=== PATIENT | male | born 1940 | race Caucasian/White ===

== ENCOUNTER → 2017-08-02 | Outpatient (CLI) | payer OTHER | LOC: BHLMT 11:30 | PROVIDERS: ATTEND Nurse Practitioner Family | DX: I48.91 Unspecified atrial fibrillation (principal) | CPT/HCPCS: 93005-PO ==

== ENCOUNTER → 2017-08-08 | Outpatient (CLI) | payer OTHER | LOC: BHLMT 13:30 | PROVIDERS: ATTEND Internal Medicine Cardiovascular Disease | DX: I48.1 Persistent atrial fibrillation (principal); I10 Essential (primary) hypertension; Z79.899 Other long term (current) drug therapy | CPT/HCPCS: 93005-PO ==

== ENCOUNTER 2017-11-12 09:18 | Day surgery (SDC) | payer OTHER ==
[2017-11-12] MEDS ORDERED: ATROPINE SULFATE 1 MG/10 ML SYR IVP ONE (09:21)
[2017-11-12] MEDS ORDERED: MIDAZOLAM 2 MG/2 ML VIAL IVP ONE (09:21)
[2017-11-12] MEDS ORDERED: NS 500 ML IV ONE (09:21)
[2017-11-12] MEDS ORDERED: fentaNYL 100 MCG/2 ML INJ IVP ONE (09:21)
[2017-11-12 10:08] LABS: INR 2.11 (0.83-1.16); PROTIME(PATIENT) 23.7 SEC (12.0-15.0)
--- NOTE | 2017-11-12 10:09 | CPEKG ---
Test Reason : OPEN Blood Pressure : / mmHG Vent. Rate : 101 BPM Atrial Rate : 101 BPM P-R Int : 167 ms QRS Dur : 099 ms QT Int : 365 ms P-R-T Axes : 081 054 017 degrees QTc Int : 474 ms Sinus tachycardia Confirmed by Roland Sanders ([id number]) on 11/12/2017 10:08:40 AM Referred By: Confirmed By:Roland Sanders
[2017-11-12] MEDS ORDERED: PROPOFOL 200 MG/20 ML VIAL ONE (10:50)
--- NOTE | 2017-11-12 11:07 | PDHPUP ---
History & Physical Update H&P update statement: This history and physical update is based on an assessment of the patient which was completed after admission or registration (within 24 hours), but prior to the surgery/procedure. H&P update: H&P reviewed & patient examined, no change in patient's condition since H&P completed
--- NOTE | 2017-11-12 11:14 | PDCARD ---
Cardioversion Procedure Procedure: electrical cardioversion Indications: other (Atrial Tachycardia) Consent: signed and in chart Anticoagulation: warfarin Procedural Details: Pads were placed in anterior-posterior position. Synchronized cardioversion attempt #1: [id number] Results: normal sinus rhythm Conclusions: successful cardioversion
--- NOTE | 2017-11-12 11:22 | PDANEPAE ---
ANE History of Present Illness Patient presents for Cardioversion ANE Past Medical History - Cardiovascular History Hx Hypertension: Yes Hx Arrhythmias: Yes - Pulmonary History Hx Oxygen in Use at Home: No Hx Sleep Apnea: No ANE Review of Systems Review of Systems: ANE Patient History - Allergies Allergies/Adverse Reactions: codeine Allergy (Verified 11/12/17 09:21) - NPO status NPO Status: no food or drink >8 hours - Smoking Hx Smoking Status: Former smoker ANE Labs/Vital Signs - Labs Result Diagrams: 11/12/17 07:50 - Vital Signs Height: 175 cm Weight: 75.7 kg ANE Physical Exam - Airway Neck exam: FROM Mallampati Score: Class 1 Mouth exam: normal dental/mouth exam - Pulmonary Pulmonary: no respiratory distress - Cardiovascular Cardiovascular: irregularly irregular - ASA Status ASA Status: III ANE Anesthesia Plan Anesthesia Plan: GA with mask (RBA discussed)
--- NOTE | 2017-11-12 11:22 | POSTANESTH ---
Post Anesthetic Evaluation Cardiovascular Status: Similar to Pre-Op Cond Respiratory Status: Similar to Pre-op Cond. Level of Consciousness/Mental Status: Alert and Oriented Pain Control: Adequate, Prn Tx Ordered Nausea/Vomiting Control: Adequate, Prn Tx Ordered Complications Possibly Related to Anesthesia: None Noted
--- NOTE | 2017-11-13 08:39 | CPEKG ---
Test Reason : OPEN Blood Pressure : / mmHG Vent. Rate : 057 BPM Atrial Rate : 056 BPM P-R Int : 306 ms QRS Dur : 096 ms QT Int : 466 ms P-R-T Axes : 008 019 017 degrees QTc Int : 454 ms Sinus rhythm Prolonged [place] interval Confirmed by Roland Sanders ([id number]) on 11/13/2017 8:39:20 AM Referred By: Confirmed By:Roland Sanders
== END 2017-11-12 12:15 | disposition home or self-care (01) ==
LOC: FCATH 09:18
PROVIDERS: ATTEND Internal Medicine Cardiovascular Disease
PROC: 5A2204Z Restoration of Cardiac Rhythm, Single (ICD-10-PCS; principal; 2017-11-12)
DX: I47.1 Supraventricular tachycardia (principal); I48.1 Persistent atrial fibrillation; I48.92 Unspecified atrial flutter; R00.2 Palpitations; I10 Essential (primary) hypertension; N40.0 Benign prostatic hyperplasia without lower urinary tract symptoms; Z79.01 Long term (current) use of anticoagulants; Z87.891 Personal history of nicotine dependence
CPT/HCPCS: J2704